=== PATIENT | female | born 1990 ===

== ENCOUNTER 2018-03-11 13:51 | Emergency (ER) | payer OTHER, BC ==
[2018-03-11 13:57] VITALS: BMI 27.4
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
[2018-03-11 15:22] VITALS: BP 122/82; PULSE 83; RESP 18; TEMP 97.8
[2018-03-11 15:50] VITALS: O2SAT 100
--- NOTE | 2018-03-13 02:22 | CARD ---
APPROVED REPORT EKG Measurement Heart [id number] <Conclusion> Normal sinus rhythm Normal ECG
== END 2018-03-11 15:22 | disposition home or self-care (01) ==
LOC: C.ER 13:51
DX: S29.9XXA Unspecified injury of thorax, initial encounter (principal); V79.9XXA Bus occupant (driver) (passenger) injured in unspecified traffic accident, initial encounter